=== PATIENT | female | born 1935 | race Caucasian/White ===

== ENCOUNTER → 2017-09-29 | Outpatient (CLI) | payer MEDICARE, BC ==
--- NOTE | 2017-09-29 14:32 | NM ---
EXAMINATION TYPE: NM bone scan whole body DATE OF EXAM: 09/29/2017 COMPARISON: NONE HISTORY: Breast carcinoma, Z03.89 Delayed whole-body scanning was performed following the injection of 23.1 mCi Tc 99m MDP. Images acq uired 3 hours post injection. FINDINGS: There is a mild spinal curvature. Mild uptake present within the thoracic and lumbar spine is likely degenerative. Uptake within the feet, knees, wrists and shoulders is likely due to arthropathy change . Soft tissue uptake is normal. IMPRESSION: Metastatic disease is not evident.
== END ==
LOC: RADNMMAIN 09:56
PROVIDERS: ATTEND Internal Medicine Hematology & Oncology
DX: Z03.89 Encounter for observation for other suspected diseases and conditions ruled out (principal); C50.111 Malignant neoplasm of central portion of right female breast
CPT/HCPCS: 78306; A9503